=== PATIENT | male | born 1995 | race Caucasian/White ===

== ENCOUNTER 2021-06-02 15:05 | Emergency (ER) | payer MEDICAID, SELFPAY ==
[2021-06-02 15:06] VITALS: BP 126/90; PULSE 76; RESP 16; TEMP 36.6; O2SAT 100; BMI 38.9
--- NOTE | 2021-06-02 15:48 | RAD_ITS ---
STUDY: X-RAY CHEST REASON FOR EXAM: Male, 26 years old. SOB TECHNIQUE: Single AP portable view of the chest. COMPARISON: None. FINDINGS: The lungs are clear and expanded. There is no demonstrated pleural abnormality. Normal size heart. Normal mediastinum and cas. Normal visualized pulmonary arteries. Normal visualized aortic arch and descending thoracic aorta. Normal visualized thoracic spine. Normal visualized ribs, clavicles, and shoulders. There is no demonstrated abnormality of the visualized soft tissue structures of the upper abdomen. RAD/Chest 1 View (Portable) IMPRESSION: Normal x-ray examination of the chest. Electronically Signed: Jeevan Rasmussen MD at 15:56 EST , Service support ,
--- NOTE | 2021-06-02 20:13 | ED.RN ---
approaches the desk and states he got his covid test and that he was leaving.
== END 2021-06-02 20:07 | disposition left against medical advice (07) ==
LOC: ED 20:17
PROVIDERS: PCP Family Medicine
DX: Z53.21 Procedure and treatment not carried out due to patient leaving prior to being seen by health care provider (principal)
CPT/HCPCS: 71045; 87426

== ENCOUNTER → 2022-04-04 | Outpatient (CLI) | payer MEDICAID, SELFPAY ==
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
== END | disposition home or self-care (01) ==
PROVIDERS: PCP Family Medicine; Referring Provider Chiropractor; Visit Provider Chiropractor
DX: S13.4XXA Sprain of ligaments of cervical spine, initial encounter (principal)
CPT/HCPCS: 72050

== ENCOUNTER → 2022-04-06 | Outpatient (CLI) | payer MEDICAID, SELFPAY ==
[2022-04-06 16:40] LABS: Absolute Lymphocyte Count 2.52 X10^3/uL (0.83-4.51); Absolute Neutrophil Count 2.2 X10^3/uL (2.0-7.7); Basophil# 0.03 X10^3/uL; Basophil% 0.6 % (0-1); Eosinophil# 0.27 X10^3/uL; Hematocrit 43.7 % (40-54); Hemoglobin 15.4 g/dL (13.0-16.5); Lymphocyte # 2.52 X10^3/ul (0.83-4.51); Lymphocyte % 46.9 % (19-41); Mean Corp Hgb Conc 35.2 g/dL (32-36); Mean Corpuscular Volume 88.1 fL (80-94); Mean Platelet Vol. 9.8 fl (6.2-12.0); Monocyte# 0.34 X10^3/uL; Monocyte% 6.3 % (0-10); NRBC Flagged by Analyzer 0 % (0-5); Platelet Count 216 K/mm3 (150-450); RBC Distribution Width CV 12.3 % (11.6-14.6); RBC Distribution Width SD 39.6 fl (35.1-43.9); Red Blood Count 4.96 M/mm3 (4.6-6.2); White Blood Count 5.4 K/mm3 (4.4-11.0)
[2022-04-06 16:57] LABS: ALB/GLOB Ratio 1.2 RATIO (0.9-2.4); AST(SGOT) 13 U/L (15-37); Alanine Aminotransfer ALT/SGPT 18 U/L (16-61); Albumin, Serum 4.2 g/dL (3.2-5.0); Alkaline Phosphatase 88 U/L (45-117); Anion Gap 4 (5-15); BUN 10 mg/dL (7-18); BUN/Creat Ratio 11.1 RATIO (10-20); Chloride 108 mmol/L (98-107); EST Glomerular Filtration Rate 107 mL/min (>60); Est Glom Filt Rate - Afr Amer 129 mL/min (>60); Globulin 3.5 g/dL (2.2-4.2); Glucose 102 mg/dL (74-106); Potassium 4.2 mmol/L (3.5-5.1); Protein, Total 7.7 g/dL (6.4-8.2); Sodium Level 140 mmol/L (136-145)
== END | disposition home or self-care (01) ==
PROVIDERS: PCP Family Medicine; Referring Provider Internal Medicine; Visit Provider Internal Medicine
DX: I95.1 Orthostatic hypotension (principal)
CPT/HCPCS: 36415; 80053; 85025

== ENCOUNTER → 2022-04-28 | Outpatient (CLI) | payer MEDICAID, SELFPAY ==
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
== END | disposition home or self-care (01) ==
LOC: MRI 15:18
PROVIDERS: PCP Family Medicine; Visit Provider Internal Medicine
DX: I95.1 Orthostatic hypotension (principal)
CPT/HCPCS: 72141

== ENCOUNTER → 2022-04-29 | Outpatient (CLI) | payer MEDICAID, SELFPAY | END | disposition home or self-care (01) | LOC: PSN 13:57 | PROVIDERS: PCP Family Medicine; Visit Provider Internal Medicine | DX: I95.1 Orthostatic hypotension (principal) | CPT/HCPCS: 93005 ==

== ENCOUNTER 2022-06-17 23:42 | Emergency (ER) | payer MEDICAID, SELFPAY ==
[2022-06-17 23:43] VITALS: BP 159/110; PULSE 110; RESP 18; TEMP 36.8; O2SAT 98; BMI 22.5
--- NOTE | 2022-06-18 00:02 | CT_ITS ---
STUDY: CT BRAIN WITHOUT CONTRAST REASON FOR EXAM: Male, 27 years old. dizziness RADIATION DOSAGE (If Supplied By Facility): CTDIvol = ( 44.99 ) mGy, DLP = ( 846.73 ) mGycm TECHNIQUE: Transaxial CT imaging of the brain was performed without administration of intravenous contrast material. Individualized dose optimization techniques were used for this CT. COMPARISON: No relevant priors. FINDINGS: Normal soft tissue structures. Normal calvarium. Normal size ventricles and extra-axial spaces for the patient''s age. Normal white matter tracts of the cerebral hemispheres. Normal basal ganglia and thalami. Normal brainstem. Normal cerebellum. There is no intracranial hemorrhage. There are no findings of an acute ischemic infarction. Mucosal retention cysts in the maxillary sinuses. CT/Brain/Head without Contrast IMPRESSION: No acute intracranial abnormality. Electronically Signed: Thomas Levi MD at 0:55 EST ,
--- NOTE | 2022-06-18 00:16 | EX.ED.DYSGE1 ---
HPI History of Present Illness Chief Complaint: General Illness Narrative Narrative: Patient is a 27-year-old male who reports no significant past medical history. He states over the past few months he has had bouts of whole body numbness and tingling as well as intermittent bouts of lightheadedness/dizziness. He states that over the last 1 to 2 days he has noticed that he is now tremoring. He states that there is no new medications he is taking and he denies any illicit drug use. He states that he feels that the tremors have been worsening throughout the day and as they are new compared to his previous symptoms he was concerned and secondary to this comes in for evaluation. [facility] Medical History Back problem Headache, migraine Hearing problem Home Medications [email or web address],thigh,reg,med #2 ea 04/06/22 [Rx Last Taken Unknown] potassium chloride 10 mEq capsule,extended release 10 meq PO DAILY 10 days #10 caps 06/18/22 [Rx Last Taken Unknown] zolpidem 5 mg tablet (Ambien) 5 mg PO QHS PRN insomnia #14 tabs 06/18/22 [Rx Last Taken Unknown] Allergy/AdvReac Type Severity Reaction Status Date / Time No Known Allergies Allergy Verified 06/17/22 23:46 Family History (Updated 04/06/22 @ 15:[address] Mehreen Esquivel MD) Other No pertinent family history Surgical History No pertinent past surgical history Social History (Updated 04/06/22 @ 15:[address] Mehreen Esquivel MD) household members: family current occupational status: unemployed Smoking Status: Former smoker Electronic Cigarette Use: with nicotine alcohol intake: never substance use type: does not use what type of physical activity do you participate in: none do you feel safe at home: Yes ROS ROS ED Constitutional Constitutional ED: Denies chills or fever(s) Eyes Eyes: Denies change in vision ENT ENT ED: Denies sore throat Cardiovascular Cardiovascular: Denies chest pain, palpitations or racing heartbeat Respiratory/Chest Respiratory/Chest: Denies cough or dyspnea Gastrointestinal Gastrointestinal: Denies abdominal pain, diarrhea, nausea or vomiting Genitourinary Genitourinary ED: Denies dysuria Musculoskeletal Musculoskeletal: Denies myalgias Integumentary Denies rash Neurologic Neurologic: Reports paresthesias and other Details: Positive tremors and dizziness ; Denies headache(s) Psychiatric Psychiatric: Denies anxiety Hematologic/Lymphatic Hematologic/Lymphatic: Denies easy bleeding or easy bruising EXAM Physical Exam Const Vital Signs: 06/17/22 23:43 06/18/22 00:39 Temperature 98.3 F Temperature Source Oral Pulse Rate 110 H Respiratory Rate 18 Respiratory Effort Normal Non-Labored Blood Pressure 159/110 H Blood Pressure Mean 126 Pulse Ox 98 Oxygen Delivery Method Room Air Positive well nourished and well developed General Appearance ED: well developed HEENT Reports moist mucous membranes Eyes PERRL and EOMs intact bilaterally Neck supple Resp normal respiratory effort and clear to auscultation bilaterally Resp Narrative: There is mild tachypnea noted Cardio regular rhythm Rate: tachycardic and other Other Details: Radial pulses are plus 2 out of 4 bilaterally are equal and symmetric GI normal to inspection, nondistended, normoactive bowel sounds, non-tender, non-distended and no masses Auscultation: normoactive bowel sounds Palpation: soft Extremity normal to inspection Neuro oriented x3 and CN's II-XII intact bilaterally Neuro Narrative: Cranial nerves II through XII are grossly intact there are no focal neurologic deficits. No pronator drift no dysmetria no truncal ataxia. NIH stroke scale score of 0. No nystagmus noted. Sensorium / Orientation: alert Psych Psych Narrative: Patient appears to have a nervous/anxious affect He has whole body tremors that are intermittent Skin no rashes or lesions noted MDM MDM MDM Narrative Medical decision making narrative: Patient presented to the ER hypertensive and tachycardic but had a nervous/anxious affect. He had multiple complaints but when patient was tasked with purposeful movement the tremors decrease and there was no focal neurologic deficit. Based on the history of dizziness and tremors I did elect to check a head CT for possible brain mass as the cause. Head CT revealed a mucous retention cyst but otherwise no clinically significant findings. There is also concern that his tremors and paresthesias could be related to abnormal electrolyte imbalance or even thyroid disorder. Second to this a basic metabolic profile with magnesium TSH and PTH were checked. His potassium was slightly low at 3.1 and this was replaced in the ER orally. However this value should not be low enough to cause the patient's symptoms. On reevaluation the patient is still awake and alert with normal neurologic exam. At this time with overall negative work-up I do not feel there is need for admission to the hospital. Patient was advised to follow-up with neurology as her multitude of causes that could be causing his symptoms but at this time there are no emergent life-threatening issues and therefore will be discharged. Lab Data Attestation: I reviewed the patient's lab results. Labs: Laboratory Results - last 24 hr 06/18/22 06/18/22 06/18/22 00:17 00:17 00:17 WBC 9.4 RBC 5.03 Hgb 15.0 Hct 43.1 MCV 85.7 MCH 29.8 MCHC 34.8 RDW Std Deviation 38.5 RDW Coeff of Miguel 12.5 Plt Count 222 MPV 9.3 Immature Gran % (Auto) 0.100 Neut % (Auto) 59.1 Lymph % (Auto) 32.1 Walker % (Auto) 5.7 Eos % (Auto) 2.7 Baso % (Auto) 0.3 Absolute Neuts (auto) 5.6 Absolute Lymphs (auto) 3.02 Nucleated RBC % 0 Sodium 142 Potassium 3.1 L Chloride 109 H Carbon Dioxide 25.0 Anion Gap 8 BUN 12 Creatinine 0.99 Estim Creat Clear Calc 128.29 Est GFR (MDRD) Af Amer 115 Est GFR (MDRD) Non-Af 95 BUN/Creatinine Ratio 12.1 Glucose 142 H Calcium 9.2 Magnesium 1.9 TSH 2.13 PTH Intact 54.4 Radiography Diagnostic Testing: Clinical Impression(s) from Imaging Studies Brain CT 06/18/22 00:02 IMPRESSION: No acute intracranial abnormality. Electronically Signed: Thomas Levi MD at 0:55 EST , Discharge Plan Triage Chief Complaint: General Illness ED Provider: Miguel Abel Dx/Rx/DC Orders Clinical Impression: Coarse tremors, Acute insomnia, Anxiety, Acute hypokalemia Instructions: Essential Tremor (ET) Prescriptions: New potassium chloride 10 mEq capsule, extended release 10 meq PO DAILY 10 Days Qty: 10 0RF zolpidem [Ambien] 5 mg tablet 5 mg PO QHS PRN (Reason: insomnia) Qty: 14 0RF No Action (DME) [email or web address],thigh,reg,med Misc See Rx Instructions .Route Qty: 2 0RF Rx Instructions: As directed Primary Care Provider: Venkatesh Vides Referrals: Venkatesh Vides, [Primary Care Provider] - Ilia Hernandez MD [Non-Staff -Ordering Privileges] - Activity Restrictions/Additional Instructions: Your work-up today only showed mild decrease her potassium therefore take the pills as directed for the next 10 days to take this to a normal value. Please follow-up with your family doctor and neurology to discuss further testing for the cause of your symptoms and return to the ER should you have any further concerns Disposition Disposition: Home, Self Care
[2022-06-18 00:25] LABS: Absolute Lymphocyte Count 3.02 X10^3/uL (0.83-4.51); Absolute Neutrophil Count 5.6 X10^3/uL (2.0-7.7); Basophil# 0.03 X10^3/uL; Basophil% 0.3 % (0-1); Eosinophil# 0.25 X10^3/uL; Eosinophils% 2.7 % (0-5); Hematocrit 43.1 % (40-54); Lymphocyte # 3.02 X10^3/ul (0.83-4.51); Lymphocyte % 32.1 % (19-41); Mean Corp Hgb Conc 34.8 g/dL (32-36); Mean Corpuscular Hgb 29.8 pg (27.0-32.0); Mean Corpuscular Volume 85.7 fL (80-94); Mean Platelet Vol. 9.3 fl (6.2-12.0); Monocyte# 0.54 X10^3/uL; Monocyte% 5.7 % (0-10); NRBC Flagged by Analyzer 0 % (0-5); Neutrophil # 5.57 X10^3/uL (2.7-7.7); Neutrophil % 59.1 % (47-70); Platelet Count 222 K/mm3 (150-450); RBC Distribution Width CV 12.5 % (11.6-14.6); RBC Distribution Width SD 38.5 fl (35.1-43.9); Red Blood Count 5.03 M/mm3 (4.6-6.2); White Blood Count 9.4 K/mm3 (4.4-11.0)
[2022-06-18] MEDS: 0.9% Normal Saline 1,000 ML 999 ML IV (00:37)
[2022-06-18] MEDS: LORazepam 2 MG/ML Syringe 1 MG IV (00:38)
[2022-06-18 00:49] LABS: PTHIN 54.4 pg/mL (18.4-80.1)
[2022-06-18 00:50] LABS: Anion Gap 8 (5-15); BUN 12 mg/dL (7-18); BUN/Creat Ratio 12.1 RATIO (10-20); Calcium,Total 9.2 mg/dL (8.5-10.1); Chloride 109 mmol/L (98-107); Creatinine, Serum 0.99 mg/dL (0.70-1.30); EST Glomerular Filtration Rate 95 mL/min (>60); Est Glom Filt Rate - Afr Amer 115 mL/min (>60); Estimated Creatinine Clearance 128.29 ml/min; Glucose 142 mg/dL (74-106); Magnesium 1.9 mg/dL (1.6-2.6); Potassium 3.1 mmol/L (3.5-5.1); Sodium Level 142 mmol/L (136-145); Thyroid Stim Hormone (TSH) 2.13 uIU/mL (0.358-3.74)
[2022-06-18] MEDS: Potassium Chloride Oral Tablet 20 MEQ 40 MEQ PO (01:06)
[2022-06-18] MEDS: Zolpidem Tartrate 5 MG Tablet PO (01:44)
[2022-06-18 01:49] VITALS: BP 135/89; PULSE 83; RESP 15; O2SAT 100
== END 2022-06-18 02:31 | disposition home or self-care (01) ==
PROVIDERS: Emergency Provider Emergency Medicine; PCP Family Medicine; Visit Provider Emergency Medicine
DX: R25.1 Tremor, unspecified (principal); E87.6 Hypokalemia; Z87.891 Personal history of nicotine dependence; F41.9 Anxiety disorder, unspecified; G47.00 Insomnia, unspecified
CPT/HCPCS: 70450; 80048; 83735; 83970; 84443; 85025; 96361; 96374; 99284; J7030; A4216

== ENCOUNTER 2022-06-20 16:38 | Inpatient (IN) | payer MEDICAID, SELFPAY ==
[2022-06-20] VITALS (10 sets, daily range): BP systolic 106–151; BP diastolic 88–109; PULSE 68–119; RESP 12–20; TEMP 36.7–37.7; O2SAT 93–100; BMI 22.5; BMI 20.8
--- NOTE | 2022-06-20 17:01 | EDS_ITS ---
HPI HPI - GI History of Present Illness Chief Complaint: Nausea/Vomiting Informant: patient, parent and family Abdominal Pain/Flank Pain Onset: Days Context: Gradual Onset Timing: Continuous Nausea/Vomiting/Emesis GI Symptom: Positive for Nausea and Vomiting Onset: Days Severity: Mild Diarrhea/Melena/Hematochezia GI Symptom: Negative for Diarrhea, Melena or Hematochezia Associated Symptoms Associated Symptoms: Negative for Dysuria, Frequency or Hematuria Narrative Narrative: 27-year-old male past medical history of migraine headaches. No other significant history or surgery. Currently on no medications other than Zofran for nausea and Ambien for sleep. Seen in the emergency department 2 days ago for similar complaint of nausea and vomiting. Family states has had very little sleep in the last 5 days. He is having hallucinations. And tremors. He was worked up the other day as work-up was unremarkable including a CAT scan of his head other than a retention cyst and mild hypokalemia. Denies any drug use. Prior similar symptoms: No Recent Illness/Hospitalization: No PFSH PFSH Medical History Back problem Headache, migraine Hearing problem Home Medications [email or web address],thigh,reg,med #2 ea 04/06/22 [Rx Last Taken Unknown] potassium chloride 10 mEq capsule,extended release 10 meq PO DAILY 10 days #10 caps 06/18/22 [Rx Last Taken Unknown] zolpidem 5 mg tablet (Ambien) 5 mg PO QHS PRN insomnia #14 tabs 06/18/22 [Rx Last Taken Unknown] Allergy/AdvReac Type Severity Reaction Status Date / Time No Known Allergies Allergy Verified 06/17/22 23:46 Family History Other No pertinent family history Surgical History No pertinent past surgical history Social History household members: family current occupational status: unemployed Smoking Status: Former smoker Electronic Cigarette Use: with nicotine alcohol intake: never substance use type: does not use what type of physical activity do you participate in: none do you feel safe at home: Yes ROS ROS ED ROS Narrative Nausea and vomiting. Sleep deprivation. Tremors. Review of Systems ROS Unobtainable: Denies due to encephalopathy Constitutional Constitutional ED: Denies chills or fever(s) ENT ENT ED: Denies ear pain, rhinorrhea or sore throat Cardiovascular Cardiovascular: Denies chest pain Respiratory/Chest Respiratory/Chest: Denies cough Gastrointestinal Gastrointestinal: Reports nausea and vomiting; Denies abdominal pain, constipation, diarrhea or melena Genitourinary Genitourinary ED: Denies dysuria or hematuria Musculoskeletal Musculoskeletal: Denies arthralgias Integumentary Denies abscess Neurologic Neurologic: Denies headache(s) Psychiatric Psychiatric: Denies anxiety Endocrine Endocrinology: Denies polydipsia Hematologic/Lymphatic Hematologic/Lymphatic: Denies easy bleeding Allergic/Immunologic Allergic/Immunologic ED: Denies mouth swelling or tongue swelling EXAM Physical Exam Narrative Exam Narrative: 19-year-old male no acute distress. Family present in room. Vital signs are stable. He does not look septic or toxic. H EENT exam unremarkable other dry mucous membranes. Posterior pharynx unremarkable. TMs normal. Pupils are dilated bilaterally but reactive to light there 5 mm. Extra motions are intact. No facial droop. No signs of trauma. Neck nontender no meningismus. Lungs clear to auscultation bilaterally. Heart regular rhythm rate about 120 no murmur. Chest wall nontender. Abdomen soft nontender. Normal bowel sounds no peritoneal signs. Moving all 4 extremities. Normal fans clerk. Normal dorsi plantar flexion. No edema. Calves nontender. Back nontender. Neurologically is awake and alert. Answers questions and follows commands. He has an odd affect. Const Vital Signs: 06/20/22 16:40 06/20/22 17:44 06/20/22 19:13 Temperature 99.8 F H Temperature Source Temporal Pulse Rate 119 H 83 77 Respiratory Rate 18 17 12 Blood Pressure 151/103 H 143/109 H Blood Pressure Mean 119 120 Pulse Ox 99 98 99 Oxygen Delivery Method Room Air Room Air Room Air 06/20/22 20:05 06/20/22 21:12 06/20/22 22:16 Temperature Temperature Source Pulse Rate 78 88 77 Respiratory Rate 16 18 20 H Blood Pressure 142/103 H 135/91 H 137/101 H Blood Pressure Mean 116 105 113 Pulse Ox 100 100 100 Oxygen Delivery Method Room Air Room Air Room Air Positive well nourished and well developed; Negative for obese, cachectic, contractures or unkempt General Appearance ED: well developed and NAD; Negative for unkempt, cachectic, contractures or pallor Nutritional Appearance: Negative for cachectic or obese HEENT Reports TM's clear and dry mucous membranes; Denies moist mucous membranes normocephalic and atraumatic; Negative for trauma or tenderness Tympanic Membrane ED: Yes TM's clear Mouth ED: Yes dry mucous membranes Mouth: dry mucous membranes Eyes PERRL and EOMs intact bilaterally General Eye ED: Negative for pale conjunctiva or scleral icterus Neck no lymphadenopathy, supple and no JVD General: Negative for tenderness Carotids: Negative for other Lymph Lymphatic: Negative for other Resp normal respiratory effort and clear to auscultation bilaterally Effort and Inspection: Negative for respiratory distress Auscultation: Negative for rales, rhonchi or wheezes Cardio regular rhythm, S1 normal heart sound, S2 normal heart sound and no murmurs; Negative for regular rate Rate: tachycardic; Negative for bradycardia Rhythm: Negative for abnormal rhythm GI non-tender, non-distended and no masses Inspection: Negative for abdominal distention Auscultation: normoactive bowel sounds Palpation: soft; Negative for tender, guarding or rigid Back/Spine no CVA tenderness General Back: Negative for CVA tenderness Cervical Spine: Negative for cervical spine tenderness Thoracic Spine / Upper Back: Negative for thoracic spinal tenderness Lumbar Spine / Lower Back: Negative for lumbar spinal tenderness Coccyx: Negative for other Extremity full ROM General Extremety ED: Negative for edema or tenderness General Extremity: Negative for edema Neuro CN's II-XII intact bilaterally, moves all extremities and no sensory deficits noted Sensorium / Orientation: alert and oriented to person Motor Exam: strength 5/5 throughout Psych mental status grossly normal and thought process normal Appearance: Negative for unkempt Attitude: No agitated Mood & Affect: Negative for depressed, anxious or tearful Skin no wounds General Skin Exam: Negative for jaundice or pallor Lesions: no lesions and No lesion noted Rashes: no rashes and No rashes noted Trauma: Negative for abrasion Nails: Negative for discolored MDM MDM MDM Narrative Medical decision making narrative: 27-year-old male history of migraine headaches. Was seen 2 days ago had an extensive work-up that was basically unremarkable including a CAT scan and labs. His exam today is benign. He has somewhat of an odd affect and bilateral dilated pupils but no neurological deficits. Clinically looks dehydrated. He will be treated with IV fluids. Screening labs will be obtained. I will obtain a tox screen given the dilated pupils and his affect. Family states has had very little sleep and is hallucinating this could be sleep deprivation could be a viral syndrome clinically it is not encephalitis. It could also be new onset of underlying psychiatric illness. Repeat exam is unchanged. Patient's labs are unremarkable except for his urine tox screen shows positive opiates, benzodiazepines and cannabis. Patient initially told me he did not do drugs anymore but said he has used heroin and fentanyl about 5 days ago. He states he does that by smoking it. He denies any IV drug use. Patient's exam is benign. His urine looks very cloudy I will add a urinalysis and a CPK. I went over all the test with both he and his family. Patient has not been forthcoming with information. Initially said he has not used drugs for a while. Then he said 5 days ago. Notes that in the last 2 days. I think most of his symptoms are from withdrawal. Discussed with both he and his mother different treatment options. Mom is very interested in inpatient detox. I will speak to the hospitalist about admission. Lab Data Attestation: I reviewed the patient's lab results. Lab results narrative: CBC shows a white count 8.7. H&H is 16.9 and 49. Platelets 284. Electrolytes show sodium 146 gap of 7 BUN of 23 creatinine 1.1 consistent with mild dehydration. Glucose 117. Liver enzymes unremarkable. Tox screen positive for opiates, cannabis and benzodiazepines. CPK is only 57. There were no signs of rhabdomyolysis. His urine is cloudy, turbid with positive nitrites, ketones consistent with dehydration and 2+ bacteria. There is no white or red cells. This will be treated as an infection. It will also be sent for urine culture. Labs: Laboratory Results - last 24 hr 06/20/22 06/20/22 06/20/22 17:30 17:30 17:30 WBC 8.7 RBC 5.66 Hgb 16.9 H Hct 49.7 MCV 87.8 MCH 29.9 MCHC 34.0 RDW Std Deviation 41.1 RDW Coeff of Miguel 12.8 Plt Count 284 MPV 9.4 Immature Gran % (Auto) 0.300 Neut % (Auto) 75.2 H Lymph % (Auto) 18.0 L [place] % (Auto) 6.2 Eos % (Auto) 0.0 Baso % (Auto) 0.3 Absolute Neuts (auto) 6.6 Absolute Lymphs (auto) 1.57 Nucleated RBC % 0 Sodium 146 H Potassium 3.6 Chloride 113 H Carbon Dioxide 26.0 Anion Gap 7 BUN 23 H Creatinine 1.15 Estim Creat Clear Calc 110.44 Est GFR (MDRD) Af Amer 97 Est GFR (MDRD) Non-Af 80 BUN/Creatinine Ratio 20.0 Glucose 117 H Calcium 10.5 H Total Bilirubin 1.60 H AST 14 L ALT 22 Alkaline Phosphatase 89 Total Creatine Kinase Total Protein 9.2 H Albumin 5.3 H Globulin 3.9 Albumin/Globulin Ratio 1.4 Urine Color Urine Clarity Urine pH Ur Specific [place] Urine Protein Urine Glucose (UA) Urine Ketones Urine Occult Blood Urine Nitrite Urine Bilirubin Urine Urobilinogen Ur Leukocyte Esterase Urine RBC Urine WBC Ur Squamous Epith Cells Uric Acid Crystals Amorphous Sediment Urine Bacteria Urine Mucus Urine Opiates Screen POSITIVE H Urine Methadone Screen NEGATIVE Ur Barbiturates Screen NEGATIVE Ur Phencyclidine Scrn NEGATIVE Ur Amphetamines Screen NEGATIVE MDMA (Ecstasy) Screen NEGATIVE U Benzodiazepines Scrn POSITIVE H Urine Cocaine Screen NEGATIVE U Cannabinoids Screen POSITIVE H Ur Drug Screen Comment 06/20/22 06/20/22 17:30 17:30 WBC RBC Hgb Hct MCV MCH MCHC RDW Std Deviation RDW Coeff of Miguel Plt Count MPV Immature Gran % (Auto) Neut % (Auto) Lymph % (Auto) [place] % (Auto) Eos % (Auto) Baso % (Auto) Absolute Neuts (auto) Absolute Lymphs (auto) Nucleated RBC % Sodium Potassium Chloride Carbon Dioxide Anion Gap BUN Creatinine Estim Creat Clear Calc Est GFR (MDRD) Af Amer Est GFR (MDRD) Non-Af BUN/Creatinine Ratio Glucose Calcium Total Bilirubin AST ALT Alkaline Phosphatase Total Creatine Kinase 57 Total Protein Albumin Globulin Albumin/Globulin Ratio Urine Color Paige Urine Clarity Turbid Urine pH 6.5 Ur Specific [place] 1.020 Urine Protein 30 H Urine Glucose (UA) 50 H Urine Ketones 150 A* Urine Occult Blood Negative Urine Nitrite Positive H Urine Bilirubin 3 H Urine Urobilinogen 4 H Ur Leukocyte Esterase 100 H Urine RBC 0 SEEN Urine WBC 0-5 SEEN Ur Squamous Epith Cells 0-5 SEEN Uric Acid Crystals 0 SEEN Amorphous Sediment 4+ Urine Bacteria 2+ Urine Mucus 0 SEEN Urine Opiates Screen Urine Methadone Screen Ur Barbiturates Screen Ur Phencyclidine Scrn Ur Amphetamines Screen MDMA (Ecstasy) Screen U Benzodiazepines Scrn Urine Cocaine Screen U Cannabinoids Screen Ur Drug Screen Comment Discharge Plan Triage Chief Complaint: Nausea/Vomiting ED Provider: Hernan Taylor Dx/Rx/DC Orders Clinical Impression: Drug abuse, Desire for detoxification, Heroin abuse, Fentanyl use disorder, mild, abuse, Marijuana use, Vomiting, Acute dehydration Prescriptions: No Action (DME) [email or web address],thigh,reg,med Misc See Rx Instructions .Route Qty: 2 0RF Rx Instructions: As directed potassium chloride 10 mEq capsule, extended release 10 meq PO DAILY 10 Days Qty: 10 0RF zolpidem [Ambien] 5 mg tablet 5 mg PO QHS PRN (Reason: insomnia) Qty: 14 0RF Primary Care Provider: Jerod Hall Referrals: Venkatesh Vides DO [Med Staff - Functional Director] - Disposition Disposition: Acute Care Hospital [facility]
[2022-06-20 17:43] LABS: Absolute Lymphocyte Count 1.57 X10^3/uL (0.83-4.51); Absolute Neutrophil Count 6.6 X10^3/uL (2.0-7.7); Basophil# 0.03 X10^3/uL; Basophil% 0.3 % (0-1); Hematocrit 49.7 % (40-54); Hemoglobin 16.9 g/dL (13.0-16.5); Lymphocyte # 1.57 X10^3/ul (0.83-4.51); Mean Corpuscular Hgb 29.9 pg (27.0-32.0); Mean Corpuscular Volume 87.8 fL (80-94); Mean Platelet Vol. 9.4 fl (6.2-12.0); Monocyte# 0.54 X10^3/uL; Monocyte% 6.2 % (0-10); NRBC Flagged by Analyzer 0 % (0-5); Neutrophil # 6.56 X10^3/uL (2.7-7.7); Neutrophil % 75.2 % (47-70); Platelet Count 284 K/mm3 (150-450); RBC Distribution Width CV 12.8 % (11.6-14.6); RBC Distribution Width SD 41.1 fl (35.1-43.9); Red Blood Count 5.66 M/mm3 (4.6-6.2); White Blood Count 8.7 K/mm3 (4.4-11.0)
[2022-06-20] MEDS: 0.9% Normal Saline 1,000 ML 1000 ML IV (17:44)
[2022-06-20] MEDS: Ondansetron 4 MG/2 ML Vial IV (17:44)
[2022-06-20 18:03] LABS: ALB/GLOB Ratio 1.4 RATIO (0.9-2.4); AST(SGOT) 14 U/L (15-37); Alanine Aminotransfer ALT/SGPT 22 U/L (16-61); Albumin, Serum 5.3 g/dL (3.2-5.0); Alkaline Phosphatase 89 U/L (45-117); Anion Gap 7 (5-15); BUN 23 mg/dL (7-18); Calcium,Total 10.5 mg/dL (8.5-10.1); Chloride 113 mmol/L (98-107); Creatinine, Serum 1.15 mg/dL (0.70-1.30); EST Glomerular Filtration Rate 80 mL/min (>60); Est Glom Filt Rate - Afr Amer 97 mL/min (>60); Estimated Creatinine Clearance 110.44 ml/min; Globulin 3.9 g/dL (2.2-4.2); Glucose 117 mg/dL (74-106); Potassium 3.6 mmol/L (3.5-5.1); Protein, Total 9.2 g/dL (6.4-8.2); Sodium Level 146 mmol/L (136-145)
[2022-06-20 18:13] LABS: Amphetamine Urine VISTA NEGATIVE (<1000 ng/mL); Barbiturate Urine VISTA NEGATIVE (< 200 ng/mL); Benzodiazepine Urine VISTA POSITIVE (< 200 ng/mL); Cocaine Urine VISTA NEGATIVE (< 300 ng/mL); Ecstacy Urine VISTA NEGATIVE (< 500 ng/mL); Methadone Urine VISTA NEGATIVE (< 300 ng/mL); PCP Urine VISTA NEGATIVE (< 25 ng/mL); THC Urine VISTA POSITIVE (< 50 ng/mL); Vista UDS pH Range 4
[2022-06-20 19:22] LABS: Mucous, Urine 0 SEEN /hpf (<or=2+); Red Blood Cells-Urine 0 SEEN /hpf (0-5)
[2022-06-20 19:25] LABS: Color, Urine Amber (Yellow); Glucose, Dipstick 50 mg/dl (Normal); Leukocyte Esterase-Dipstick 100 /ul (Negative); Nitrite-Dipstick Positive (Negative); Occult Blood-Urine Negative /ul (Negative); Protein-Dipstick 30 mg/dl (Negative); Urine Clarity Turbid (Clear); Urine Urobilinogen 4 mg/dl (Normal); Urine pH 6.5 (5.0 - 8.0)
[2022-06-20 19:35] LABS: Urine Bilirubin Dipstick 3 mg/dL (Negative)
[2022-06-20 19:37] LABS: Ketone-Dipstick 150 mg/dl (Negative)
[2022-06-20 19:39] LABS: CPK Total, Creatine Kinase 57 U/L (39-308)
[2022-06-20 19:42] LABS: Squamous Epithelial Cells - UA 0-5 SEEN /hpf (0-5); White Blood Cells 0-5 SEEN /hpf (0-5)
[2022-06-20 19:45] LABS: Amorphous Sediment 4+; Bacteria 2+ /hpf (None Seen); Uric Acid Crystals Ur 0 SEEN /hpf (<or=1+)
--- NOTE | 2022-06-20 22:51 | HP.PCM.HOS_ITS ---
HPI - General General Date of Admission: 06/20/22 Date of Service: 06/20/22 Chief Complaint: Withdrawal symptoms HPI Narrative SONIA CAVAZOS, is a 27 M with a significant history of multi substance abuse who presents with withdrawal symptoms. Patient reports taking Vicodin, fentanyl and heroin. He also uses THC. He snorted fentanyl. He report that using drugs for about 5 years. Last time he used was 2 days ago. Two days ago because of possible withdrawal symptoms that was diagnosed as anxiety patient was reportedly prescribed benzo. Patient reports withdrawal symptoms of visual and auditory hallucination. He reports nausea, vomiting and tremors. Patient report dysuria. For the past 3 months patient has lost about 30 pounds from not eating. [facility] Medical History (Updated 06/20/22 @ 23:37 by Loan Canseco) Back problem Drug abuse Hearing problem Heroin use Home Medications [email or web address],thigh,reg,med #2 ea 04/06/22 [Rx Last Taken Unknown] zolpidem 5 mg tablet (Ambien) 5 mg PO QHS PRN insomnia #14 tabs 06/18/22 [Rx Last Taken 06/20/22 01:00] potassium chloride 10 mEq capsule,extended release 10 meq PO DAILY supplement 06/20/22 [History Last Taken 06/20/22 18:00] Allergy/AdvReac Type Severity Reaction Status Date / Time No Known Allergies Allergy Verified 06/20/22 23:38 Family History (Updated 06/20/22 @ 23:[address] Toni Bonilla MD) Other Hypertension Kidney disease No pertinent family history Surgical History no surgical history no surgical history Social History household members: family current occupational status: unemployed Smoking Status: Current every day smoker tobacco type: e-cigarettes Electronic Cigarette Use: with nicotine alcohol intake: never substance use type: does not use what type of physical activity do you participate in: none do you feel safe at home: Yes ROS ROS Narrative Pertinent positives and pertinent negatives as noted in HPI. All other systems were reviewed and are negative Vital Signs Vital Signs Vital Signs: 06/20/22 16:40 06/20/22 17:44 06/20/22 19:13 Temperature 99.8 F H Temperature Source Temporal Pulse Rate 119 H 83 77 Respiratory Rate 18 17 12 Blood Pressure 151/103 H 143/109 H Blood Pressure Mean 119 120 Pulse Ox 99 98 99 Oxygen Delivery Method Room Air Room Air Room Air 06/20/22 20:05 06/20/22 21:12 06/20/22 22:16 Temperature Temperature Source Pulse Rate 78 88 77 Respiratory Rate 16 18 20 H Blood Pressure 142/103 H 135/91 H 137/101 H Blood Pressure Mean 116 105 113 Pulse Ox 100 100 100 Oxygen Delivery Method Room Air Room Air Room Air Weight Weight: 81.647 kg Body Mass Index (BMI) 22.5 Physical Exam Narrative Physical exam: General: Well-nourished, well-developed. Head: Normocephalic, atraumatic, no tenderness Eyes: Vision is grossly intact. EOMI ENT, no trauma, dry mucous membranes, no rhinorrhea Neck: Nontender, No thyromegaly. CVS: Regular rate and rhythm. S1-S2 present. No murmur, gallop or rub. Respiratory : clear to auscultation bilaterally, chest wall nontender, no wheezing Abdomen: Soft, nontender, nondistended, normal bowel sounds, no masses : Deferred Back: Nontender, no CVA tenderness, no midline spinal tenderness, deformities, step-offs Extremities: Nontender full range of motion, no trauma Skin: Normal color, no trauma, abrasions Neuro: Alert, oriented, incoherent speech. Mydriasis with pupils that reacts sluggishly to light. Tremors Psychiatry: Normal mood. Normal affect. Not depressed. Not anxious. Results Lab / Micro Data Result Diagrams: 06/20/22 17:30 06/20/22 17:30 Labs: Laboratory Results - last 24 hr 06/20/22 17:30: WBC 8.7, RBC 5.66, Hgb 16.9 H, Hct 49.7, MCV 87.8, MCH 29.9, MCHC 34.0, RDW Std Deviation 41.1, RDW Coeff of Miguel 12.8, Plt Count 284, MPV 9.4, Immature Gran % (Auto) 0.300, Neut % (Auto) 75.2 H, Lymph % (Auto) 18.0 L, [place] % (Auto) 6.2, Eos % (Auto) 0.0, Baso % (Auto) 0.3, Absolute Neuts (auto) 6.6, Absolute Lymphs (auto) 1.57, Nucleated RBC % 0 06/20/22 17:30: Sodium 146 H, Potassium 3.6, Chloride 113 H, Carbon Dioxide 26.0, Anion Gap 7, BUN 23 H, Creatinine 1.15, Estim Creat Clear Calc 110.44, Est GFR (MDRD) Af Amer 97, Est GFR (MDRD) Non-Af 80, BUN/Creatinine Ratio 20.0, Glucose 117 H, Calcium 10.5 H, Total Bilirubin 1.60 H, AST 14 L, ALT 22, Alkaline Phosphatase 89, Total Protein 9.2 H, Albumin 5.3 H, Globulin 3.9, Albumin/Globulin Ratio 1.4 06/20/22 17:30: Urine Opiates Screen POSITIVE H, Urine Methadone Screen NEGATIVE, Ur Barbiturates Screen NEGATIVE, Ur Phencyclidine Scrn NEGATIVE, Ur Amphetamines Screen NEGATIVE, MDMA (Ecstasy) Screen NEGATIVE, U Benzodiazepines Scrn POSITIVE H, Urine Cocaine Screen NEGATIVE, U Cannabinoids Screen POSITIVE H , Ur Drug Screen Comment 06/20/22 17:30: Total Creatine Kinase 57 06/20/22 17:30: Urine Color Paige, Urine Clarity Turbid, Urine pH 6.5, Ur Specific [place] 1.020, Urine Protein 30 H, Urine Glucose (UA) 50 H, Urine Ketones 150 A*, Urine Occult Blood Negative, Urine Nitrite Positive H, Urine Bilirubin 3 H, Urine Urobilinogen 4 H, Ur Leukocyte Esterase 100 H, Urine RBC 0 SEEN, Urine WBC 0-5 SEEN, Ur Squamous Epith Cells 0-5 SEEN, Uric Acid Crystals 0 SEEN, Amorphous Sediment 4+, Urine Bacteria 2+, Urine Mucus 0 SEEN Assessment & Plan Assessment/Plan (1) Withdrawal from opioids: (2) Desire for detoxification: (3) UTI (urinary tract infection): PLAN: Plan Opioid dependence and withdrawal Patient be started on Subutex and other adjunctive medications: Gabapentin as needed; dicyclomine as needed; Vistaril as needed; methocarbamol as needed; clonidine as needed; Imodium as needed; trazodone as needed and Zofran as needed. Monitor COWS and CINA score Tobacco abuse Counseled UTI Urinalysis reviewed showed abnormal urinalysis. Urine culture ordered, follow Keflex ordered Dehydration Noted to have erythrocytosis that could also secondary to smoking. Dry mucous membrane, elevated sodium and chloride. Elevated BUN. Gentle IV hydration. Trend BMP. DVT prophylaxis Low risk Encourage to ambulate Charges/Coding Visit Charges Inpatient E&M: 55211 Init Hosp L3
[2022-06-20] MEDS: 0.9% Normal Saline 1,000 ML 100 ML IV (23:44)
[2022-06-21] VITALS (7 sets, daily range): BP systolic 132–161; BP diastolic 86–100; PULSE 73–106; RESP 16–18; TEMP 36.6–37.1; O2SAT 99–100
[2022-06-21] MEDS: Cephalexin 500 MG Capsule PO ×3 (00:08→20:54)
[2022-06-21] MEDS: cloNIDine HCl 0.1 MG Tablet PO ×2 (02:48→20:54)
[2022-06-21] MEDS: Gabapentin 300 MG Capsule PO (02:48)
[2022-06-21] MEDS: Buprenorphine HCl 2 MG TAB.SUBL SL ×3 (03:33→19:11)
[2022-06-21] MEDS: hydrOXYzine PAM 25 MG Capsule 50 MG PO ×3 (06:19→20:54)
[2022-06-21] MEDS: Methocarbamol 750 MG Tablet 1500 MG PO ×3 (06:19→20:54)
[2022-06-21 06:48] LABS: Anion Gap 9 (5-15); BUN 27 mg/dL (7-18); BUN/Creat Ratio 28.4 RATIO (10-20); Calcium,Total 9.8 mg/dL (8.5-10.1); Chloride 115 mmol/L (98-107); Creatinine, Serum 0.95 mg/dL (0.70-1.30); EST Glomerular Filtration Rate 100 mL/min (>60); Est Glom Filt Rate - Afr Amer 121 mL/min (>60); Estimated Creatinine Clearance 127.06 ml/min; Glucose 103 mg/dL (74-106); Potassium 3.9 mmol/L (3.5-5.1); Sodium Level 149 mmol/L (136-145)
[2022-06-21] MEDS: 0.9% Normal Saline 1,000 ML 100 ML IV ×2 (08:22→17:26)
--- NOTE | 2022-06-21 10:03 | PN.HOSP_ITS ---
Subjective Subjective Doing well, no issues overnight. Cina score 4 Objective Data Objective Data Vital Signs: Vital Signs Temp Pulse Resp BP Pulse Ox O2 Del Method 98 F 77 18 132/86 H 100 Room Air 06/21/22 09:43 06/21/22 09:43 06/21/22 09:43 06/21/22 09:43 06/21/22 09:43 06/21/22 09:43 Oxygen Delivery Method Room Air Weight: 171 lb 1.259 oz Body Mass Index (BMI) 20.8 Intake & Output: Intake and Output for Last 24 Hours 06/20/22 06/21/22 06/22/22 03:59 03:59 03:59 Intake Total 1200 / 1200 1063.33 / 1063.33 Output Total 200 / 200 Balance 1000 / 1000 1063.33 / 1063.33 Lab / Micro Data Result Diagrams: 06/20/22 17:30 06/21/22 05:08 Labs: Laboratory Results - last 24 hr 06/20/22 17:30: WBC 8.7, RBC 5.66, Hgb 16.9 H, Hct 49.7, MCV 87.8, MCH 29.9, MCHC 34.0, RDW Std Deviation 41.1, RDW Coeff of Miguel 12.8, Plt Count 284, MPV 9.4, Immature Gran % (Auto) 0.300, Neut % (Auto) 75.2 H, Lymph % (Auto) 18.0 L, [place] % (Auto) 6.2, Eos % (Auto) 0.0, Baso % (Auto) 0.3, Absolute Neuts (auto) 6.6, Absolute Lymphs (auto) 1.57, Nucleated RBC % 0 06/20/22 17:30: Sodium 146 H, Potassium 3.6, Chloride 113 H, Carbon Dioxide 26.0, Anion Gap 7, BUN 23 H, Creatinine 1.15, Estim Creat Clear Calc 110.44, Est GFR (MDRD) Af Amer 97, Est GFR (MDRD) Non-Af 80, BUN/Creatinine Ratio 20.0, Glucose 117 H, Calcium 10.5 H, Total Bilirubin 1.60 H, AST 14 L, ALT 22, Alkaline Phosphatase 89, Total Protein 9.2 H, Albumin 5.3 H, Globulin 3.9, Albumin/Globulin Ratio 1.4 06/20/22 17:30: Urine Opiates Screen POSITIVE H, Urine Methadone Screen NEGATIVE, Ur Barbiturates Screen NEGATIVE, Ur Phencyclidine Scrn NEGATIVE, Ur Amphetamines Screen NEGATIVE, MDMA (Ecstasy) Screen NEGATIVE, U Benzodiazepines Scrn POSITIVE H, Urine Cocaine Screen NEGATIVE, U Cannabinoids Screen POSITIVE H , Ur Drug Screen Comment 06/20/22 17:30: Total Creatine Kinase 57 06/20/22 17:30: Urine Color Paige, Urine Clarity Turbid, Urine pH 6.5, Ur Specific [place] 1.020, Urine Protein 30 H, Urine Glucose (UA) 50 H, Urine Ketones 150 A*, Urine Occult Blood Negative, Urine Nitrite Positive H, Urine Bilirubin 3 H, Urine Urobilinogen 4 H, Ur Leukocyte Esterase 100 H, Urine RBC 0 SEEN, Urine WBC 0-5 SEEN, Ur Squamous Epith Cells 0-5 SEEN, Uric Acid Crystals 0 SEEN, Amorphous Sediment 4+, Urine Bacteria 2+, Urine Mucus 0 SEEN 06/21/22 05:08: Sodium 149 H, Potassium 3.9, Chloride 115 H, Carbon Dioxide 25.0, Anion Gap 9, BUN 27 H, Creatinine 0.95, Estim Creat Clear Calc 127.06, Est GFR (MDRD) Af Amer 121, Est GFR (MDRD) Non-Af 100, BUN/Creatinine Ratio 28.4 H, Glucose 103, Calcium 9.8 Physical Exam Narrative General: Alert, Oriented x3, Cooperative, No apparent distress HEENT: Atraumatic, PERRLA, EOMI, Normocephalic Oral: Moist Mucosa Neck: Supple, No JVD Lungs: Clear to auscultation, Normal air movement, No rhonchi, No wheeze, No rales Cardiovascular: Regular rate, Regular Rhythm, Normal S1, Normal S2, No murmurs Abdomen: Soft, Non Tender, Non-Distended, No Hepato-splenomegaly Extremities: No edema, Capillary Refill Less than 3 Seconds Skin: No rashes, No breakdown Musculoskeletal: No Tenderness to Palpation of Joints or Extremities Neurological: Cranial nerves II-XII grossly intact, Motor Exam 5/5 strength throughout, Sensory exam intact to light touch and pain Psych/Mental Status: Anxious and restless Assessment & Plan Assessment/Plan (1) Withdrawal from opioids: (2) Desire for detoxification: (3) UTI (urinary tract infection): PLAN: Plan 1. Opiate withdrawal/tobacco abuse ? Continue with the opiate withdrawal protocol ? Follow-up with 180 ? Discussed cessation and and can nicotine patch if necessary 2. possible UTI with dehydration ? He was given IV fluids in the ER ? UA showed an elevated WBC but no bacteria he is currently on Keflex, will await urine cultures DVT: Ambulation Charges/Coding Visit Charges Inpatient E&M: 14210 Subs Hosp L2
[2022-06-21] MEDS: Acetaminophen 325 MG Tablet 650 MG PO ×2 (13:13→20:54)
[2022-06-22] MEDS: Buprenorphine HCl 2 MG TAB.SUBL SL ×3 (02:33→19:54)
[2022-06-22 02:40] VITALS: BP 149/96; PULSE 64; RESP 16; TEMP 36.6; O2SAT 100
[2022-06-22] MEDS: 0.9% Normal Saline 1,000 ML 100 ML IV ×2 (03:31→13:35)
[2022-06-22 07:51] VITALS: BP 147/99; PULSE 89; RESP 16; TEMP 36.6; O2SAT 100
[2022-06-22] MEDS: Gabapentin 300 MG Capsule PO (08:05)
[2022-06-22] MEDS: cloNIDine HCl 0.1 MG Tablet PO (08:05)
--- NOTE | 2022-06-22 08:17 | PCM.PN.HOSP ---
Subjective Subjective Follow-up acute opioid withdrawal and hypernatremia ? Patient is a 27-year-old gentleman with history of polysubstance dependence admitted with acute opioid withdrawal Objective Data Objective Data Vital Signs: Vital Signs Temp Pulse Resp BP Pulse Ox O2 Del Method 97.9 F 89 16 147/99 H 100 Room Air 06/22/22 07:51 06/22/22 07:51 06/22/22 07:51 06/22/22 07:51 06/22/22 07:51 06/22/22 07:51 Oxygen Delivery Method Room Air Weight: 77.6 kg Body Mass Index (BMI) 20.8 Intake & Output: Intake and Output for Last 24 Hours 06/20/22 06/21/22 06/22/22 23:59 23:59 23:59 Intake Total 1000 / 1000 2970.00 / 2970.00 1700 / 1700 Output Total 200 / 200 Balance 1000 / 1000 2770.00 / 2770.00 1700 / 1700 Medical Nutrition Assessment Dietitian: Malnutrition Criteria Met Start: 06/21/22 15:49 Freq: Status: Active Protocol: Document 06/21/22 15:49 RMA (Rec: 06/21/22 15:49 RMA [id number]) Nutrition Malnutrition Evidence of Malnutrition Exists Yes Malnutrition (severe): Chronic,Social/Behavioral/ Environmental Evidenced By Suboptimal Energy Intake ( Severe),Weight Loss (Severe), Physical Changes (Moderate) Clinical Problem Chronic Disease or Condition Related Malnutrition Etiology Severe pro-pilar malnutrition in the context of social circumstance related to drug abuse and inadequate oral intake Signs/Symptoms as evidenced by unintentional weight loss of approximately 15% body weight in less than 6 months, BMI 20.8, oral intake meeting less than 50% estimated nutrition needs x past 3 months, moderate muscle /fat wasting in the clavicle, face and orbitals Status Active Problem Recommendation Dietitian Recommendations/Changes Will continue liberalized regular diet and encouraged PO at meals/request snacks. Will add 240 ml vanilla ensure plus high protein TID w/ meals per pt preference. Adjust ONS as needed to optimize oral intake and prevent further weight loss. Lab / Micro Data Result Diagrams: 06/20/22 17:30 06/21/22 05:08 Physical Exam Narrative GENERAL: Tremoring at rest HEENT: Atraumatic; normocephalic EYES; Anicteric, Normal Conjunctiva NECK; supple, normal thyroid, RESPIRATORY: Diminished to auscultation CARDIOVASCULAR: Regular S1 S2, GI: soft, normoactive bowel sounds, : No Renal angle tenderness; EXTREMITIES: No edema, no clubbing, MUSCULOSKELETAL: no muscle wasting NEURO: Awake; no lateralizing signs. SKIN: No Rash PSYCH; Flat affect Assessment & Plan Assessment/Plan (1) Withdrawal from opioids: (2) Desire for detoxification: (3) UTI (urinary tract infection): PLAN: Plan ? Patient is a 27-year-old gentleman with history of polysubstance dependence admitted with acute opioid withdrawal 1. Acute opioid withdrawal ? Patient has been admitted to regular nursing floor managed with Subutex taper in addition to adjuvant medications for his symptoms 2. Dehydration with hypernatremia ? Sodium level as of 06/21/2022 was 149 repeat BMP ordered ordered. Patient may be started on IV fluid based on results of BMP this a.m. 3. Tobacco dependence - Counseled on cessation, offered nicotine patch for tobacco cravings 4. Suspected acute cystitis on admission ? Patient started on Keflex pending culture results 5. DVT prophylaxis ? Low risk did encourage ambulation Total time spent; 38-minute Charges/Coding Visit Charges Inpatient E&M: 44896 Subs Hosp L2
[2022-06-22 09:16] LABS: Anion Gap 6 (5-15); BUN 23 mg/dL (7-18); BUN/Creat Ratio 31.7 RATIO (10-20); Chloride 116 mmol/L (98-107); Creatinine, Serum 0.73 mg/dL (0.70-1.30); EST Glomerular Filtration Rate 137 mL/min (>60); Est Glom Filt Rate - Afr Amer 165 mL/min (>60); Estimated Creatinine Clearance 165.36 ml/min; Glucose 104 mg/dL (74-106); Potassium 3.7 mmol/L (3.5-5.1); Sodium Level 146 mmol/L (136-145)
[2022-06-22] MEDS: Cephalexin 500 MG Capsule PO ×2 (10:22→20:00)
[2022-06-22] MEDS: Phenobarbital 32.4 MG Tablet 97.2 MG PO ×3 (12:09→19:54)
[2022-06-22 16:29] VITALS: BP 156/96; PULSE 56; RESP 16; TEMP 36.8; O2SAT 100
[2022-06-22] MEDS: LORazepam 1 MG Tablet 2 MG PO (19:54)
[2022-06-22 22:00] VITALS: BP 148/96; PULSE 74; RESP 16; TEMP 37.2; O2SAT 100
[2022-06-23] MEDS: Phenobarbital 32.4 MG Tablet 97.2 MG PO ×2 (00:21→03:54)
[2022-06-23] MEDS: Buprenorphine HCl 2 MG TAB.SUBL SL (03:54)
[2022-06-23 04:00] VITALS: BP 154/89; PULSE 86; RESP 16; TEMP 36.7; O2SAT 100
--- NOTE | 2022-06-23 07:05 | NURSING ---
Pt out of room, walking aimlessly in halls with hallucinations becoming belligerent with staff; staff tried to talk pt into returning to room, unsuccessful. Security called; unable to successfully talk pt into going back to room, pt walked onto elevator, security not able to talk pt into returning to nursing floor. program engagement director called police, pt escorted by security to front door to leave AMA.
--- NOTE | 2022-06-23 07:33 | PCM.PN.HOSP ---
Objective Data Objective Data Vital Signs: Vital Signs Temp Pulse Resp BP Pulse Ox O2 Del Method 98.1 F 86 16 154/89 H 100 Room Air 06/23/22 04:00 06/23/22 04:00 06/23/22 04:00 06/23/22 04:00 06/23/22 04:00 06/23/22 04:00 Oxygen Delivery Method Room Air Weight: 77.6 kg Body Mass Index (BMI) 20.8 Intake & Output: Intake and Output for Last 24 Hours 06/21/22 06/22/22 06/23/22 23:59 23:59 23:59 Intake Total 2970.00 / 2970.00 3106.66 / 3106.66 200 / 200 Output Total 200 / 200 Balance 2770.00 / 2770.00 3106.66 / 3106.66 200 / 200 Medical Nutrition Assessment Dietitian: Malnutrition Criteria Met Start: 06/21/22 15:49 Freq: Status: Active Protocol: Document 06/21/22 15:49 RMA (Rec: 06/21/22 15:49 RMA [id number]) Nutrition Malnutrition Evidence of Malnutrition Exists Yes Malnutrition (severe): Chronic,Social/Behavioral/ Environmental Evidenced By Suboptimal Energy Intake ( Severe),Weight Loss (Severe), Physical Changes (Moderate) Clinical Problem Chronic Disease or Condition Related Malnutrition Etiology Severe pro-pilar malnutrition in the context of social circumstance related to drug abuse and inadequate oral intake Signs/Symptoms as evidenced by unintentional weight loss of approximately 15% body weight in less than 6 months, BMI 20.8, oral intake meeting less than 50% estimated nutrition needs x past 3 months, moderate muscle /fat wasting in the clavicle, face and orbitals Status Active Problem Recommendation Dietitian Recommendations/Changes Will continue liberalized regular diet and encouraged PO at meals/request snacks. Will add 240 ml vanilla ensure plus high protein TID w/ meals per pt preference. Adjust ONS as needed to optimize oral intake and prevent further weight loss. Lab / Micro Data Result Diagrams: 06/20/22 17:30 06/22/22 08:42 Labs: Laboratory Results - last 24 hr 06/22/22 08:42: Sodium 146 H, Potassium 3.7, Chloride 116 H, Carbon Dioxide 24.0, Anion Gap 6, BUN 23 H, Creatinine 0.73, Estim Creat Clear Calc 165.36, Est GFR (MDRD) Af Amer 165, Est GFR (MDRD) Non-Af 137, BUN/Creatinine Ratio 31.7 H, Glucose 104, Calcium 9.0 Micro: Microbiology 06/20/22 17:30 Urine, Clean Catch Urine Culture - Preliminary Culture exhibits no growth. Physical Exam Narrative GENERAL: Tremoring at rest HEENT: Atraumatic; normocephalic EYES; Anicteric, Normal Conjunctiva NECK; supple, normal thyroid, RESPIRATORY: Diminished to auscultation CARDIOVASCULAR: Regular S1 S2, GI: soft, normoactive bowel sounds, : No Renal angle tenderness; EXTREMITIES: No edema, no clubbing, MUSCULOSKELETAL: no muscle wasting NEURO: Awake; no lateralizing signs. SKIN: No Rash PSYCH; Flat affect Assessment & Plan Assessment/Plan (1) Withdrawal from opioids: (2) Desire for detoxification: (3) UTI (urinary tract infection): PLAN: Plan ? Patient is a 27-year-old gentleman with history of polysubstance dependence admitted with acute opioid withdrawal 1. Acute opioid withdrawal ? Patient has been admitted to regular nursing floor managed with Subutex taper in addition to adjuvant medications for his symptoms 2. Dehydration with hypernatremia ? Sodium level as of 06/21/2022 was 149 repeat BMP ordered ordered. Patient may be started on IV fluid based on results of BMP this a.m. 3. Tobacco dependence - Counseled on cessation, offered nicotine patch for tobacco cravings 4. Suspected acute cystitis on admission ? Patient started on Keflex pending culture results 5. DVT prophylaxis ? Low risk did encourage ambulation Severe pro-pilar malnutrition in the context of social circumstance related to drug abuse and inadequate oral intake as evidenced by unintentional weight loss of approximately 15% body weight in less than 6 months, BMI 20.8, oral intake meeting less than 50% estimated nutrition needs x past 3 months, moderate muscle/fat wasting in the clavicle, face and orbitals. Will continue liberalized regular diet and encouraged PO at meals/request snacks. Will add 240 ml vanilla ensure plus high protein TID w/ meals per pt preference. Adjust ONS as needed to optimize oral intake and prevent further weight loss. Total time spent; 38-minute
--- NOTE | 2022-06-23 11:30 | DS.PCM_ITS ---
Providers Date of Admission: 06/20/22 Date of Discharge: 06/23/22 Primary Care Physician: Dr. Jerod Hall MD Reason For Visit: OPIOID AND BENZO WITHDRAWL Diagnosis Discharge Diagnosis (1) Withdrawal from opioids: Status: Acute Code(s): F11.93 - Opioid use, unspecified with withdrawal (2) Desire for detoxification: Status: Acute (3) UTI (urinary tract infection): Status: Acute Code(s): N39.0 - Urinary tract infection, site not specified Medications at Discharge Home Medications [email or web address],thigh,reg,med #2 ea 04/06/22 zolpidem 5 mg tablet (Ambien) 5 mg PO QHS PRN insomnia #14 tabs 06/18/22 potassium chloride 10 mEq capsule,extended release 10 meq PO DAILY supplement 06/20/22 Hospital Course Summary of Care Provided Minutes Spent on Discharge: 25 Hospital Course: ? Patient is a 27-year-old gentleman with history of polysubstance dependence admitted with acute opioid withdrawal 1. Acute opioid withdrawal ? Patient has been admitted to regular nursing floor managed with Subutex taper in addition to adjuvant medications for his symptoms -Patient was reported to have signed out AGAINST MEDICAL ADVICE following episode of delirium. He was apparently found by the police once he left the building and to continue 2. Dehydration with hypernatremia ? Sodium level as of 06/21/2022 was 149 repeat BMP ordered ordered. Patient may be started on IV fluid based on results of BMP this a.m. 3. Tobacco dependence - Counseled on cessation, offered nicotine patch for tobacco cravings 4. Suspected acute cystitis on admission ? Patient started on Keflex pending culture results 5. DVT prophylaxis ? Low risk did encourage ambulation Severe pro-pilar malnutrition in the context of social circumstance related to drug abuse and inadequate oral intake as evidenced by unintentional weight loss of approximately 15% body weight in less than 6 months, BMI 20.8, oral intake meeting less than 50% estimated nutrition needs x past 3 months, moderate muscle/fat wasting in the clavicle, face and orbitals. Will continue liberalized regular diet and encouraged PO at meals/request snacks. Will add 240 ml vanilla ensure plus high protein TID w/ meals per pt preference. Adjust ONS as needed to optimize oral intake and prevent further weight loss. Total time spent; 38-minute Physical Exam Narrative Left AGAINST MEDICAL ADVICE prior to patient being examined Weight / BMI Weight Weight: 77.6 kg Body Mass Index (BMI) 20.8 ABG / Lab / Microbiology Data Result Diagrams: 06/20/22 17:30 06/22/22 08:42 Microbiology: Microbiology 06/20/22 17:30 Urine, Clean Catch Urine Culture - Final Mixed Gram Positive Organisms Meaningful Use Info Meaningful Use Diagnoses (Choose all that apply): None applicable Discharge Plan Admission Admit Date/Time: 06/20/22 22:43 Attending Provider: Juanjose Spears Primary Care Provider: Jerod Hall Consulting Providers: Toni Bonilla ; Javier Craig Discharge Orders/Prescriptions Prescriptions: No Action (DME) [email or web address],thigh,reg,med Misc See Rx Instructions .Route Qty: 2 0RF Rx Instructions: As directed zolpidem [Ambien] 5 mg tablet 5 mg PO QHS PRN (Reason: insomnia) Qty: 14 0RF potassium chloride 10 mEq capsule, extended release 10 meq PO DAILY Referrals / Follow Up: Venkatesh Vides DO [Med Staff - Plant Production Manager] - Disposition Disposition (needs filled in before D/C Order can be placed): Against Medical Advice Charges/Coding Visit Charges Inpatient E&M: 30107 Disch Hosp
== END 2022-06-23 07:15 | disposition left against medical advice (07) | DRG 770 ==
LOC: ED 22:37 → MS3 23:31
PROVIDERS: Admitting Provider Hospitalist; Emergency Provider Emergency Medicine; PCP Internal Medicine; Visit Provider Internal Medicine
DX: F11.23 Opioid dependence with withdrawal (principal); E43 Unspecified severe protein-calorie malnutrition; E87.0 Hyperosmolality and hypernatremia; E87.6 Hypokalemia; E86.0 Dehydration; R44.0 Auditory hallucinations; R44.1 Visual hallucinations; F17.290 Nicotine dependence, other tobacco product, uncomplicated; Z68.20 Body mass index [BMI] 20.0-20.9, adult; Z72.820 Sleep deprivation; N30.00 Acute cystitis without hematuria; Z53.21 Procedure and treatment not carried out due to patient leaving prior to being seen by health care provider; Z79.899 Other long term (current) drug therapy
CPT/HCPCS: 36415; 70450; 80048; 80053; 80307; 81001; 82550; 83735; 83970; 84443; 85025; 87086; 87088; 96361; 96374; 97802; 99284; J7030; A4216; J2405

== ENCOUNTER 2022-06-23 17:31 | Emergency (ER) | payer MEDICAID, SELFPAY ==
[2022-06-23 17:32] VITALS: BP 144/99; PULSE 104; RESP 16; TEMP 37; O2SAT 98; BMI 21.9
[2022-06-23 18:30] LABS: Absolute Lymphocyte Count 1.91 X10^3/uL (0.83-4.51); Absolute Neutrophil Count 6.5 X10^3/uL (2.0-7.7); Basophil# 0.03 X10^3/uL; Basophil% 0.3 % (0-1); Eosinophil# 0.04 X10^3/uL; Eosinophils% 0.4 % (0-5); Hematocrit 37.5 % (40-54); Hemoglobin 13.2 g/dL (13.0-16.5); Lymphocyte # 1.91 X10^3/ul (0.83-4.51); Lymphocyte % 20.6 % (19-41); Mean Corp Hgb Conc 35.2 g/dL (32-36); Mean Corpuscular Hgb 30.1 pg (27.0-32.0); Mean Corpuscular Volume 85.6 fL (80-94); Mean Platelet Vol. 9.4 fl (6.2-12.0); Monocyte# 0.73 X10^3/uL; Monocyte% 7.9 % (0-10); NRBC Flagged by Analyzer 0 % (0-5); Neutrophil # 6.53 X10^3/uL (2.7-7.7); Neutrophil % 70.5 % (47-70); Platelet Count 228 K/mm3 (150-450); RBC Distribution Width CV 12.2 % (11.6-14.6); RBC Distribution Width SD 37.9 fl (35.1-43.9); Red Blood Count 4.38 M/mm3 (4.6-6.2); White Blood Count 9.3 K/mm3 (4.4-11.0)
[2022-06-23 18:45] LABS: Amphetamine Urine VISTA NEGATIVE (<1000 ng/mL); Anion Gap 7 (5-15); BUN 18 mg/dL (7-18); BUN/Creat Ratio 21.5 RATIO (10-20); Barbiturate Urine VISTA POSITIVE (< 200 ng/mL); Benzodiazepine Urine VISTA NEGATIVE (< 200 ng/mL); Calcium,Total 8.9 mg/dL (8.5-10.1); Chloride 113 mmol/L (98-107); Cocaine Urine VISTA NEGATIVE (< 300 ng/mL); Creatinine, Serum 0.84 mg/dL (0.70-1.30); EST Glomerular Filtration Rate 116 mL/min (>60); Ecstacy Urine VISTA NEGATIVE (< 500 ng/mL); Est Glom Filt Rate - Afr Amer 140 mL/min (>60); Glucose 91 mg/dL (74-106); Methadone Urine VISTA NEGATIVE (< 300 ng/mL); PCP Urine VISTA NEGATIVE (< 25 ng/mL); Potassium 3.3 mmol/L (3.5-5.1); Sodium Level 144 mmol/L (136-145); THC Urine VISTA NEGATIVE (< 50 ng/mL); Vista UDS pH Range 5
[2022-06-23 19:03] LABS: Alcohol, Blood (Medical)-Serum < 3.0 mg/dL
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
--- NOTE | 2022-06-23 19:39 | EKG12_ITS ---
Test Reason : DYSRHYTHMIA Blood Pressure : / mmHG Vent. Rate : 080 BPM Atrial Rate : 080 BPM P-R Int : 140 ms QRS Dur : 100 ms QT Int : 384 ms P-R-T Axes : 066 047 040 degrees QTc Int : 442 ms Normal sinus rhythm with sinus arrhythmia Normal ECG Confirmed by RUDY CHARLES, JOHN ([id number]), assignment desk editor ANSON SUMMERS ([id number]) on 06/24/2022 9:22:03 AM Referred By: NIELS Confirmed By:JOHN GRANT MD
[2022-06-23 20:11] VITALS: RESP 16
--- NOTE | 2022-06-23 21:57 | ED.RN ---
current plan of care discussed with patient and family. no additional questions or needs. extended education required. while in room with patient he began to talk about leveling up and runners. mother states he has been talking as thou he was in a game. fernando thomason rn [id number]
[2022-06-23 22:00] VITALS: RESP 16
--- NOTE | 2022-06-23 22:02 | NURSING ---
RM 5- REFERRED TO [facility] PER CRISIS
[2022-06-24 00:37] VITALS: BP 156/101; PULSE 85; RESP 18; O2SAT 97
[2022-06-24 05:16] VITALS: RESP 16
[2022-06-24 07:34] VITALS: BP 146/103; PULSE 70; RESP 18; TEMP 36.1; O2SAT 96
[2022-06-24 09:33] VITALS: BP 146/103; PULSE 70; RESP 18; TEMP 36.1; O2SAT 96
== END 2022-06-24 11:54 ==
PROVIDERS: Emergency Provider Emergency Medicine; PCP Internal Medicine; Visit Provider Emergency Medicine
DX: F23 Brief psychotic disorder (principal); F19.19 Other psychoactive substance abuse with unspecified psychoactive substance-induced disorder; F17.290 Nicotine dependence, other tobacco product, uncomplicated
CPT/HCPCS: 80048; 80307; 82077; 85025; 87811; 93005; 99283

== ENCOUNTER 2022-08-02 00:31 | Emergency (ER) | payer MEDICAID, SELFPAY ==
[2022-08-02 00:32] VITALS: BP 122/87; PULSE 69; RESP 17; TEMP 36.6; O2SAT 98; BMI 26.7
--- NOTE | 2022-08-02 00:56 | EKG12_ITS ---
Test Reason : SYNCOPE Blood Pressure : / mmHG Vent. Rate : 069 BPM Atrial Rate : 069 BPM P-R Int : 148 ms QRS Dur : 094 ms QT Int : 368 ms P-R-T Axes : 051 030 039 degrees QTc Int : 394 ms Normal sinus rhythm Incomplete right bundle branch block Confirmed by DESHAUN CHARLES, ENMANUEL ([id number]), assistant editor ANSON SUMMERS ([id number]) on 08/03/2022 2:32:12 PM Referred By: HARMEET Confirmed By:ENMANUEL MEADE MD
[2022-08-02] MEDS: 0.9% Normal Saline 1,000 ML 1000 ML IV (01:02)
--- NOTE | 2022-08-02 01:11 | EDS_ITS ---
HPI History of Present Illness Chief Complaint: Syncope Informant: patient and parent Narrative Narrative: Patient was started on Coreg about 2 weeks ago. Since that time he has had 2 or 3 syncopal episodes and some near syncope. Most of these occur shortly after standing up. He states he starts to feel lightheaded. He sometimes he will get some very mild nausea but is not vomiting. He then passes out for a brief period of time. They have also been checking his blood pressure at home. He has been running 90s over 60s generally. He does not have a prior history of heart disease disease dysrhythmia or high blood pressure. There is family history of high blood pressure. He states he feels fine now. He is eating and drinking but admits he is probably not drinking much plain water. He is drinking tea. With these episodes he is never felt slow or fast or abnormal heart rates. He has never had pain in any area. He has bumped his head but he has no headache. He is not on any anticoagulation. He has history of drug abuse but is evidently not using now after he got treatment recently. [facility] Medical History Back problem Drug abuse Hearing problem Heroin use Home Medications [email or web address],thigh,reg,med #2 ea 04/06/22 [Rx Last Taken Unknown] carvedilol 6.25 mg tablet 6.25 mg PO BID 08/02/22 [History Last Taken Unknown] melatonin 12 mg tablet 20 mg PO QHS sleep 08/02/22 [History Last Taken Unknown] naltrexone 50 mg tablet 50 mg PO QHS 08/02/22 [History Last Taken Unknown] Allergy/AdvReac Type Severity Reaction Status Date / Time No Known Allergies Allergy Verified 06/23/22 17:32 Family History Other Hypertension Kidney disease No pertinent family history Social History household members: family current occupational status: unemployed Smoking Status: Current every day smoker tobacco type: e-cigarettes Electronic Cigarette Use: with nicotine alcohol intake: never substance use type: does not use what type of physical activity do you participate in: none do you feel safe at home: Yes ROS ROS ED Constitutional Constitutional ED: Denies chills, fever(s), subjective or sweats Eyes Eyes: Denies change in vision ENT ENT ED: Denies rhinorrhea or sore throat Cardiovascular Cardiovascular: Denies chest pain, palpitations or racing heartbeat Respiratory/Chest Respiratory/Chest: Denies cough, dyspnea or sputum Gastrointestinal Gastrointestinal: Reports nausea; Denies abdominal pain, diarrhea or vomiting Genitourinary Genitourinary ED: Denies dysuria Musculoskeletal Musculoskeletal: Denies myalgias Integumentary Denies abscess Neurologic Neurologic: Denies headache(s), paresthesias or weakness Endocrine Endocrinology: Denies polydipsia or polyuria Hematologic/Lymphatic Hematologic/Lymphatic: Denies easy bleeding or easy bruising Allergic/Immunologic Allergic/Immunologic ED: Denies urticaria EXAM Physical Exam Narrative Exam Narrative: Patient is sitting in bed. He is awake alert and appropriate and conversant. He looks nontoxic. He carries on a normal conversation. HEENT: This does show some dry mucous membranes. No sign of significant trauma or tenderness. No sinus tenderness. No epistaxis. Neck shows no tenderness or pain with range of motion Lungs are clear bilaterally and no pain with a deep breath. His respiratory rate and O2 sat are normal. Heart is regular with a rate of about 60. No murmur gallop or rub is heard. Peripheral pulses are equal x4. Abdomen is soft and completely nontender. No back or spinal tenderness shows no CVA or suprapubic tenderness Extremities show no cord edema tenderness distended veins or asymmetry. Const Vital Signs: 08/02/22 00:32 08/02/22 00:39 Temperature 97.8 F Temperature Source Oral Pulse Rate 69 Respiratory Rate 17 Respiratory Effort Normal Non-Labored Respiratory Pattern Normal Blood Pressure 122/87 H Blood Pressure Mean 98 Pulse Ox 98 Oxygen Delivery Method Room Air MDM MDM MDM Narrative Medical decision making narrative: Patient CBC is normal including white count hemoglobin and platelets. Electrolytes show no marked abnormalities. Renal function is preserved. Glucose is minimally up at 112 which is nonspecific. Ref patient is started carvedilol 6.25 mg twice a day. Since starting this he has been having symptoms. I recommend he cut that in half. He states it is a scored tablet. If he still having low blood pressure he may need to stop it. They do have the ability to check blood pressures at home. We discussed about doing this. He has an appointment with his physician in 3 months but I explained he should call and get an appointment sooner. Lab Data Labs: Laboratory Results - last 24 hr 08/02/22 08/02/22 00:40 00:40 WBC 10.6 RBC 4.59 L Hgb 14.5 Hct 43.4 MCV 94.6 H MCH 31.6 MCHC 33.4 RDW Std Deviation 48.7 H RDW Coeff of Miguel 14.1 Plt Count 274 MPV 9.1 Immature Gran % (Auto) 0.500 Neut % (Auto) 52.3 Lymph % (Auto) 39.3 [place] % (Auto) 6.5 Eos % (Auto) 1.0 Baso % (Auto) 0.4 Absolute Neuts (auto) 5.5 Absolute Lymphs (auto) 4.15 Nucleated RBC % 0 Sodium 141 Potassium 3.5 Chloride 108 H Carbon Dioxide 26.0 Anion Gap 7 BUN 10 Creatinine 0.84 Estim Creat Clear Calc 156.48 Est GFR (MDRD) Af Amer 141 Est GFR (MDRD) Non-Af 116 BUN/Creatinine Ratio 12.0 Glucose 112 H Calcium 8.8 EKG Initial EKG: Comments: My independent interpretation of the patient's EKG done for syncope shows a normal sinus rhythm with a rate of 69. No ectopy. No acute ST elevation or depression. There is some baseline variation. SD interval, QRS duration and QTc are normal. Discharge Plan Triage Chief Complaint: Syncope ED Provider: Jose Antonio Alcantara Dx/Rx/DC Orders Clinical Impression: Syncope, Medication adverse effect Instructions: ED Fainting, Uncertain Cause Prescriptions: No Action (DME) [email or web address],thigh,reg,med Misc See Rx Instructions .Route Qty: 2 0RF Rx Instructions: As directed carvedilol 6.25 mg tablet 6.25 mg PO BID Label Comments: TAKE 1 TABLET BY MOUTH TWICE A DAY naltrexone 50 mg tablet 50 mg PO QHS Label Comments: TAKE 1 TABLET BY MOUTH EVERYDAY AT BEDTIME melatonin 12 mg Tablet 20 mg PO QHS Primary Care Provider: Jerod Hall Referrals: Jerod Hall MD [Primary Care Provider] - 1 Week Disposition Disposition: Home, Self Care
[2022-08-02 01:17] LABS: Absolute Lymphocyte Count 4.15 X10^3/uL (0.83-4.51); Absolute Neutrophil Count 5.5 X10^3/uL (2.0-7.7); Basophil# 0.04 X10^3/uL; Basophil% 0.4 % (0-1); Eosinophil# 0.11 X10^3/uL; Hematocrit 43.4 % (40-54); Hemoglobin 14.5 g/dL (13.0-16.5); Lymphocyte # 4.15 X10^3/ul (0.83-4.51); Lymphocyte % 39.3 % (19-41); Mean Corp Hgb Conc 33.4 g/dL (32-36); Mean Corpuscular Hgb 31.6 pg (27.0-32.0); Mean Corpuscular Volume 94.6 fL (80-94); Mean Platelet Vol. 9.1 fl (6.2-12.0); Monocyte# 0.69 X10^3/uL; Monocyte% 6.5 % (0-10); NRBC Flagged by Analyzer 0 % (0-5); Neutrophil # 5.53 X10^3/uL (2.7-7.7); Neutrophil % 52.3 % (47-70); Platelet Count 274 K/mm3 (150-450); RBC Distribution Width CV 14.1 % (11.6-14.6); RBC Distribution Width SD 48.7 fl (35.1-43.9); Red Blood Count 4.59 M/mm3 (4.6-6.2); White Blood Count 10.6 K/mm3 (4.4-11.0)
[2022-08-02 01:24] LABS: Anion Gap 7 (5-15); BUN 10 mg/dL (7-18); Calcium,Total 8.8 mg/dL (8.5-10.1); Chloride 108 mmol/L (98-107); Creatinine, Serum 0.84 mg/dL (0.70-1.30); EST Glomerular Filtration Rate 116 mL/min (>60); Est Glom Filt Rate - Afr Amer 141 mL/min (>60); Estimated Creatinine Clearance 156.48 ml/min; Glucose 112 mg/dL (74-106); Potassium 3.5 mmol/L (3.5-5.1); Sodium Level 141 mmol/L (136-145)
[2022-08-02 02:12] VITALS: BP 121/71; PULSE 75; RESP 20; O2SAT 96
== END 2022-08-02 02:20 | disposition home or self-care (01) ==
PROVIDERS: Emergency Provider Emergency Medicine; PCP Internal Medicine; Visit Provider Emergency Medicine
DX: R55 Syncope and collapse (principal); T44.7X5A Adverse effect of beta-adrenoreceptor antagonists, initial encounter; F17.290 Nicotine dependence, other tobacco product, uncomplicated; R11.0 Nausea
CPT/HCPCS: 80048; 85025; 93005; 96360; 99285; J7030; A4216

== ENCOUNTER 2022-11-20 14:16 | Emergency (ER) | payer MEDICAID, SELFPAY ==
[2022-11-20 14:19] VITALS: BP 146/97; PULSE 113; RESP 20; TEMP 36.5; O2SAT 98; BMI 25.1
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
[2022-11-20] MEDS: 0.9% Normal Saline 1,000 ML 1000 ML IV (14:48)
[2022-11-20 14:58] LABS: Absolute Lymphocyte Count 1.41 X10^3/uL (0.83-4.51); Absolute Neutrophil Count 5.9 X10^3/uL (2.0-7.7); Basophil# 0.01 X10^3/uL; Basophil% 0.1 % (0-1); Eosinophil# 0.01 X10^3/uL; Eosinophils% 0.1 % (0-5); Hematocrit 42.6 % (40-54); Lymphocyte # 1.41 X10^3/ul (0.83-4.51); Lymphocyte % 18.2 % (19-41); Mean Corp Hgb Conc 35.2 g/dL (32-36); Mean Corpuscular Hgb 32.1 pg (27.0-32.0); Mean Platelet Vol. 9.6 fl (6.2-12.0); Monocyte# 0.34 X10^3/uL; Monocyte% 4.4 % (0-10); NRBC Flagged by Analyzer 0 % (0-5); Neutrophil # 5.94 X10^3/uL (2.7-7.7); Neutrophil % 76.7 % (47-70); Platelet Count 290 K/mm3 (150-450); RBC Distribution Width CV 12.1 % (11.6-14.6); RBC Distribution Width SD 40.1 fl (35.1-43.9); Red Blood Count 4.68 M/mm3 (4.6-6.2); White Blood Count 7.8 K/mm3 (4.4-11.0)
[2022-11-20 15:17] LABS: AST(SGOT) 16 U/L (15-37); Alanine Aminotransfer ALT/SGPT 19 U/L (16-61); Albumin, Serum 3.9 g/dL (3.2-5.0); Alkaline Phosphatase 80 U/L (45-117); Anion Gap 10 (5-15); BUN 11 mg/dL (7-18); BUN/Creat Ratio 9.6 RATIO (10-20); Bilirubin, Direct 0.22 mg/dL (0.00-0.30); Calcium,Total 9.1 mg/dL (8.5-10.1); Chloride 109 mmol/L (98-107); Creatinine, Serum 1.15 mg/dL (0.70-1.30); EST Glomerular Filtration Rate 80 mL/min (>60); Est Glom Filt Rate - Afr Amer 97 mL/min (>60); Globulin 3.4 g/dL (2.2-4.2); Glucose 226 mg/dL (74-106); Potassium 3.3 mmol/L (3.5-5.1); Protein, Total 7.3 g/dL (6.4-8.2); Sodium Level 141 mmol/L (136-145); Troponin-I HS 12 pg/mL (3.0-78.0)
[2022-11-20 15:23] LABS: Amphetamine Urine VISTA NEGATIVE (<1000 ng/mL); Barbiturate Urine VISTA NEGATIVE (< 200 ng/mL); Benzodiazepine Urine VISTA NEGATIVE (< 200 ng/mL); Cocaine Urine VISTA NEGATIVE (< 300 ng/mL); Ecstacy Urine VISTA NEGATIVE (< 500 ng/mL); Methadone Urine VISTA NEGATIVE (< 300 ng/mL); PCP Urine VISTA NEGATIVE (< 25 ng/mL); THC Urine VISTA NEGATIVE (< 50 ng/mL); Vista UDS pH Range 5
[2022-11-20 15:50] LABS: Mucous, Urine 0 SEEN /hpf (<or=2+); Squamous Epithelial Cells - UA 0 SEEN /hpf (0-5)
[2022-11-20 16:17] VITALS: BP 119/86; PULSE 85; RESP 18; O2SAT 100
[2022-11-20 16:31] LABS: Color, Urine Yellow (Yellow); Glucose, Dipstick 250 mg/dl (Normal); Ketone-Dipstick 50 mg/dl (Negative); Leukocyte Esterase-Dipstick Negative /ul (Negative); Nitrite-Dipstick Negative (Negative); Occult Blood-Urine 10 /ul (Negative); Protein-Dipstick 500 mg/dl (Negative); Urine Bilirubin Dipstick Negative (Negative); Urine Clarity Sl. Cloudy (Clear); Urine Urobilinogen Normal (Normal)
[2022-11-20] MEDS: Potassium Chloride Oral Tablet 20 MEQ 40 MEQ PO (16:42)
[2022-11-20 16:51] LABS: Hyaline Cast 10-25 SEEN /lpf (0-5)
[2022-11-20 16:52] LABS: Bacteria 1+ /hpf (None Seen); Red Blood Cells-Urine 0-5 SEEN /hpf (0-5); White Blood Cells 5-10 SEEN /hpf (0-5)
== END 2022-11-20 16:58 | disposition left against medical advice (07) ==
PROVIDERS: Emergency Provider Emergency Medicine; PCP Internal Medicine; Visit Provider Emergency Medicine
DX: R55 Syncope and collapse (principal); F17.290 Nicotine dependence, other tobacco product, uncomplicated
CPT/HCPCS: 80048; 80076; 80307; 81001; 82077; 84484; 85025; 93005; 96360; 96361; 99285; J7030; A4216

== ENCOUNTER → 2022-12-22 | Outpatient (CLI) | payer MEDICAID, SELFPAY ==
[2022-12-22 13:43] LABS: Absolute Lymphocyte Count 2.71 X10^3/uL (0.83-4.51); Absolute Neutrophil Count 6.5 X10^3/uL (2.0-7.7); Basophil# 0.02 X10^3/uL; Basophil% 0.2 % (0-1); Eosinophil# 0.16 X10^3/uL; Eosinophils% 1.6 % (0-5); Hematocrit 45.6 % (40-54); Hemoglobin 15.6 g/dL (13.0-16.5); Lymphocyte # 2.71 X10^3/ul (0.83-4.51); Lymphocyte % 26.6 % (19-41); Mean Corp Hgb Conc 34.2 g/dL (32-36); Mean Corpuscular Hgb 32.6 pg (27.0-32.0); Mean Corpuscular Volume 95.2 fL (80-94); Mean Platelet Vol. 9.6 fl (6.2-12.0); Monocyte# 0.72 X10^3/uL; Monocyte% 7.1 % (0-10); NRBC Flagged by Analyzer 0 % (0-5); Neutrophil # 6.54 X10^3/uL (2.7-7.7); Neutrophil % 64.3 % (47-70); Platelet Count 240 K/mm3 (150-450); RBC Distribution Width CV 12.6 % (11.6-14.6); Red Blood Count 4.79 M/mm3 (4.6-6.2); White Blood Count 10.2 K/mm3 (4.4-11.0)
[2022-12-22 14:35] LABS: ALB/GLOB Ratio 1.4 RATIO (0.9-2.4); AST(SGOT) 21 U/L (15-37); Alanine Aminotransfer ALT/SGPT 26 U/L (16-61); Albumin, Serum 4.5 g/dL (3.2-5.0); Alkaline Phosphatase 83 U/L (45-117); Anion Gap 5 (5-15); BUN 7 mg/dL (7-18); BUN/Creat Ratio 8.1 RATIO (10-20); Calcium,Total 9.1 mg/dL (8.5-10.1); Chloride 103 mmol/L (98-107); Creatinine, Serum 0.87 mg/dL (0.70-1.30); EST Glomerular Filtration Rate 111 mL/min (>60); Est Glom Filt Rate - Afr Amer 134 mL/min (>60); Globulin 3.2 g/dL (2.2-4.2); Glucose 105 mg/dL (74-106); Potassium 3.5 mmol/L (3.5-5.1); Protein, Total 7.7 g/dL (6.4-8.2); Sodium Level 138 mmol/L (136-145)
[2022-12-22 15:24] LABS: HIV - WCH Non-Reactive (Nonreactive); Hepatitis B Surface Antibody Non-Reactive; Hepatitis B Surface Antigen Non-Reactive (Nonreactive); Hepatitis C Antibody Non-Reactive (Nonreactive)
[2022-12-24 19:07] LABS: HCV Quant. RNA PCR HCV Not Detected IU/mL (.); Hepatitis A AB, Total Negative (Negative)
== END | disposition home or self-care (01) ==
LOC: LAB 12:42
PROVIDERS: PCP Internal Medicine; Referring Provider Registered Nurse; Visit Provider Registered Nurse
DX: F11.20 Opioid dependence, uncomplicated (principal)
CPT/HCPCS: 80053; 85025; 86703; 86706; 86708; 86803; 87340; 87522